=== PATIENT | male | born 1985 | race Hispanic/Latino ===

== ENCOUNTER 2017-06-11 13:58 | Emergency (ER) | payer MEDICAID, OTHER ==
[2017-06-11 14:49] VITALS: BP 105/59; PULSE 87; RESP 16; TEMP 97.9; O2SAT 100
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
--- NOTE | 2017-06-11 15:47 | RAD ---
PROCEDURE: Radiographs of the Chest and Right Ribs. HISTORY: trauma COMPARISON: None available. TECHNIQUE: Frontal radiograph of the chest and multiple oblique radiographs of the right ribs were obtained. FINDINGS: RIGHT RIBS: No fracture or focal lesion visualized. LUNGS: Clear. PLEURA: No pneumothorax or pleural fluid. CARDIOVASCULAR: Normal sized heart. No pulmonary vascular congestion. OTHER FINDINGS: None. IMPRESSION: Unremarkable radiographs of the chest and right ribs. No right rib fracture.
== END 2017-06-11 17:45 | disposition home or self-care (01) ==
LOC: H.ER 13:58
DX: S20.219A Contusion of unspecified front wall of thorax, initial encounter (principal); W19.XXXA Unspecified fall, initial encounter; Y92.89 Other specified places as the place of occurrence of the external cause; J45.909 Unspecified asthma, uncomplicated
CPT/HCPCS: 71101; 96372; 99282; J1885

== ENCOUNTER 2018-07-09 09:01 | Emergency (ER) | payer MEDICAID, OTHER ==
[2018-07-09 09:13] VITALS: RESP 18; TEMP 98.1; O2SAT 100; BMI 21.7
[2018-07-09] MEDS ORDERED: Sodium Chloride 0.9% 1,000 ML IV STA ×2 (09:29)
--- NOTE | 2018-07-09 09:36 | ED PDOC ---
HPI:Nausea, Vomiting, Diarrhea Time Seen by Provider: 07/09/18 09:21 Chief Complaint (Nursing): GI Problem Chief Complaint (Provider): Nausea and vomiting History Per: Patient History/Exam Limitations: no limitations Onset/Duration Of Symptoms: Days (2) Current Symptoms Are (Timing): Still Present Quality Of Discomfort: denies: "Pain" Associated Symptoms: Nausea, Vomiting. denies: Fever, Chills, Diarrhea, Back Pain, Chest Pain Additional History Per: Patient Additional Complaint(s): 32yo male with history of bipolar disorder, anxiety, asthma, comes to ER reporting nausea and vomiting since yesterday. Patient reports multiple episodes of non-bloody and non-biliary vomiting; states he has not been able to tolerate PO intake. Patient denies any abdominal pain, diarrhea, chest pain. He denies any recent travels, antibiotics use, or known sick contacts. Of note, patient is a daily marijuana user and states he has never had such symptoms before. PMD: None Past Medical History Reviewed: Historical Data, Nursing Documentation, Vital Signs Vital Signs: Last Vital Signs Temp 98.1 F 07/09/18 09:12 Pulse 72 07/09/18 09:12 Resp 18 07/09/18 09:12 BP 126/72 07/09/18 09:12 Pulse Ox 100 07/09/18 09:12 - Medical History PMH: Anxiety, Asthma, Bipolar Disorder - Surgical History Surgical History: No Surg Hx - Family History Family History: States: No Known Family Hx - Living Arrangements Living Arrangements: With Family - Social History Drugs: Cannabis (daily) - Home Medications Home Medications: Ambulatory Orders Medication Instructions Recorded Ibuprofen [Motrin Tab] 800 mg PO Q8 PRN #20 tab 06/11/17 traMADol [Ultram] 50 mg PO TID PRN #8 tab 06/11/17 Albuterol HFA [Ventolin HFA 90 2 puff IH [id number] #1 inh 07/09/18 mcg/actuation (8 g)] Ondansetron ODT [Zofran ODT] 4 mg PO Q8 PRN #12 odt 07/09/18 - Allergies Allergies/Adverse Reactions: Allergies Allergy/AdvReac Type Severity Reaction Status Date / Time No Known Allergies Allergy Verified 07/09/18 09:18 Review of Systems ROS Statement: Except As Marked, All Systems Reviewed And Found Negative Constitutional: Negative for: Fever, Chills Cardiovascular: Negative for: Chest Pain Gastrointestinal: Positive for: Nausea, Vomiting. Negative for: Abdominal Pain, Diarrhea Physical Exam - Reviewed Nursing Documentation Reviewed: Yes Vital Signs Reviewed: Yes - Physical Exam Appears: Positive for: Non-toxic, Uncomfortable Head Exam: Positive for: ATRAUMATIC, NORMAL INSPECTION, NORMOCEPHALIC Skin: Positive for: Warm, Dry. Negative for: Rash Eye Exam: Positive for: EOMI, PERRL ENT: Positive for: Other (dry mucus membranes) Neck: Positive for: Normal, Supple Cardiovascular/Chest: Positive for: Regular Rate, Rhythm. Negative for: Tachycardia Respiratory: Positive for: Normal Breath Sounds. Negative for: Respiratory Distress Pulses-Radial (L): 2+ Pulses-Radial (R): 2+ Gastrointestinal/Abdominal: Positive for: Normal Exam, Soft, Other (patient vomiting prior to exam). Negative for: Tenderness, Guarding, Rebound Back: Positive for: Normal Inspection. Negative for: L CVA Tenderness, R CVA Tenderness Extremity: Positive for: Normal ROM. Negative for: Pedal Edema Neurologic/Psych: Positive for: Alert, Oriented. Negative for: Motor/Sensory Deficits - Laboratory Results Result Diagrams: 07/09/18 09:41 07/09/18 09:41 - ECG O2 Sat by Pulse Oximetry: 100 (RA) Pulse Ox Interpretation: Normal Medical Decision Making Medical Decision Making: Impression: Nausea and vomiting Differential: Acute pancreatitis, SBO, gastritis, less likely cannabis induced cyclical vomiting Plan: -- Labs -- IV Fluids -- Zofran 4mg IV -- Pepcid 20mg IV 1004 Labs reviewed, no clinically significant abnormalities noted. Patient pending reassessment after IVF, pepcid and zofran 1020 On reassessment, patient reports minimal improvement in symptoms. IV Reglan ordered. CT Abdomen/Pelvis w/ IV contrast ordered. 1246 CT Abdomen/Pelvis FINDINGS: LOWER THORAX: Unremarkable. LIVER: Unremarkable. No gross lesion or ductal dilatation. GALLBLADDER AND BILE DUCTS: Unremarkable. PANCREAS: Unremarkable. No gross lesion or ductal dilatation. SPLEEN: Unremarkable. ADRENALS: Unremarkable. No mass. KIDNEYS AND URETERS: Unremarkable. No hydronephrosis. No solid mass. VASCULATURE: Unremarkable. No aortic aneurysm. No atherosclerotic calcification or mural plaque present. BOWEL: Gastric distension with air-fluid level. Prominent gastric folds may reflect mild gastritis. APPENDIX: Normal appendix. PERITONEUM: Unremarkable. No free fluid. No free air. LYMPH NODES: Unremarkable. No enlarged lymph nodes. BLADDER: Unremarkable. REPRODUCTIVE: Unremarkable. BONES: No acute fracture. OTHER FINDINGS: None. IMPRESSION: No evidence of small-bowel obstruction, volvulus, intussusception. Gastric distension, a gastric fold thickening may represent mild gastritis. 1300 On reassessment, patient reports improvement in symptoms. CT results discussed with patient. Informed to follow up with PMD in 2-3 days and GI if symptoms persist. Scribe Attestation: Documented by Anisa Kwon acting as a scribe for Ghada Sandhu MD Provider Attestation: All medical record entries made by the Scribe were at my direction and personally dictated by me. I have reviewed the chart and agree that the record accurately reflects my personal performance of the history, physical exam, medical decision making, and the department course for this patient. I have also personally directed, reviewed, and agree with the discharge instructions and disposition. Disposition - Clinical Impression Clinical Impression: Vomiting, Gastritis - Patient ED Disposition Is Patient to be Admitted: No Doctor Will See Patient In The: Office Counseled Patient/Family Regarding: Studies Performed, Diagnosis, Need For Followup - Disposition Referrals: [facility] [Outside] Disposition: Routine/Home Disposition Time: 13:13 Condition: IMPROVED Additional Instructions: TROY RATLIFF, thank you for letting us take care of you today. Your provider was Ghada Sandhu MD and you were treated for VOMITING. The emergency medical care you received today was directed at your acute symptoms. If you were prescribed any medication, please fill it and take as directed. It may take several days for your symptoms to resolve. Return to the Emergency Department if your symptoms worsen, do not improve, or if you have any other problems. Please contact your doctor or call one of the physicians/clinics you have been referred to that are listed on the Patient Visit Information form that is included in your discharge packet. Bring any paperwork you were given at discharge with you along with any medications you are taking to your follow up visit. Our treatment cannot replace ongoing medical care by a primary care provider outside of the emergency department. Thank you for allowing the [facility] team to be part of your care today. If you had an X-Ray or CT scan: A Radiologist will review the ED reading if any change in treatment is needed we will contact you. If you had a blood, urine, or wound culture: It will take several days for the results, if any change in treatment is needed we will contact you. If you had an STI test: It will take 48 hours for the results. Please call after 1 week if you have not heard back. Prescriptions: Albuterol HFA [Ventolin HFA 90 mcg/actuation (8 g)] 2 puff IH [id number] #1 inh Ondansetron ODT [Zofran ODT] 4 mg PO Q8 PRN #12 odt PRN Reason: Nausea/Vomiting Instructions: Gastritis (DC) Forms: [employer] (Senegalese)
[2018-07-09 09:49] LABS: BASO % 0.4 % (0.0-2.0); EOS % 0.3 % (0.0-4.0); HEMOGLOBIN 14.7 g/dL (12.0-18.0); LYMPH # 1.1 K/uL (1.0-4.3); LYMPH % 10.6 % (20.0-40.0); MEAN CELL VOLUME 88.9 fl (80.0-94.0); MEAN CORPUSCULAR HEMOGLOBIN 29.9 pg (27.0-31.0); MEAN CORPUSCULAR HGB CONC 33.6 g/dL (33.0-37.0); MEAN PLATELET VOLUME 7.3 fl (7.2-11.7); MONO # 0.6 K/uL (0.0-0.8); MONO % 5.9 % (0.0-10.0); NEUT # 8.3 K/uL (1.8-7.0); NEUT % 82.8 % (50.0-75.0); NRBC % 0.1 % (0.0-0.0); RBC 4.93 Mil/uL (4.40-5.90); RED CELL DISTRIBUTION WIDTH 14.3 % (11.5-14.5); WHITE BLOOD COUNT 10.1 K/uL (4.8-10.8)
[2018-07-09 10:01] LABS: ALB/GLOB RATIO 1.6 (1.0-2.1); ALBUMIN 4.8 g/dL (3.5-5.0); ALT/SGPT 39 U/L (21-72); AST/SGOT 27 U/L (17-59); BLOOD UREA NITROGEN 21 mg/dl (9-20); CALCIUM 9.8 mg/dL (8.4-10.2); GFR NON-AFRICAN AMERICAN > 60; LIPASE 71 U/L (23-300)
[2018-07-09] MEDS ORDERED: Sodium Chloride 0.9% 50 ML IV ONE (11:45)
[2018-07-09] MEDS ORDERED: Iohexol 300 100 ML IJ ONE (11:45)
--- NOTE | 2018-07-09 12:32 | CT ---
Date of service: 07/09/2018 PROCEDURE: CT Abdomen and Pelvis with contrast HISTORY: vomiting r/o SBO No history of colitis or other pathologic process. COMPARISON: None. TECHNIQUE: Intravenous contrast dose: 95 cc Omnipaque 300 Radiation dose: Total exam DLP = 333.16 mGy-cm. This CT exam was performed using one or more of the following dose reduction techniques: Automated exposure control, adjustment of the mA and/or kV according to patient size, and/or use of iterative reconstruction technique. FINDINGS: LOWER THORAX: Unremarkable. LIVER: Unremarkable. No gross lesion or ductal dilatation. GALLBLADDER AND BILE DUCTS: Unremarkable. PANCREAS: Unremarkable. No gross lesion or ductal dilatation. SPLEEN: Unremarkable. ADRENALS: Unremarkable. No mass. KIDNEYS AND URETERS: Unremarkable. No hydronephrosis. No solid mass. VASCULATURE: Unremarkable. No aortic aneurysm. No atherosclerotic calcification or mural plaque present. BOWEL: Gastric distension with air-fluid level. Prominent gastric folds may reflect mild gastritis. APPENDIX: Normal appendix. PERITONEUM: Unremarkable. No free fluid. No free air. LYMPH NODES: Unremarkable. No enlarged lymph nodes. BLADDER: Unremarkable. REPRODUCTIVE: Unremarkable. BONES: No acute fracture. OTHER FINDINGS: None. IMPRESSION: No evidence of small-bowel obstruction, volvulus, intussusception. Gastric distension, a gastric fold thickening may represent mild gastritis. Communication of results: I discussed the findings and relevant clinical history with the attending physician in the emergency department at 12:24.
[2018-07-09 16:23] VITALS: BP 122/70; PULSE 70
== END 2018-07-09 13:40 | disposition home or self-care (01) ==
LOC: H.ER 09:01
DX: K29.70 Gastritis, unspecified, without bleeding (principal); R11.10 Vomiting, unspecified
CPT/HCPCS: 74177; 80053; 83690; 85025; 96374; 96375; 99284; G0480; J2405; J2765; J7030; Q9967